=== PATIENT | male | born 1965 | race Caucasian/White ===

== ENCOUNTER 2025-01-22 02:15 | Inpatient (IN) | payer OTHER ==
[2025-01-22] MEDS ORDERED: Magnesium 2 GM/50 ML BAG (IN WATER) ONE (02:22)
[2025-01-22] MEDS ORDERED: Albuterol 2.5 MG (3 mL) NEB ONE (02:31)
[2025-01-22 02:41] LABS: #Basophils 0.10 10x3/uL (0.0-0.2); #Eosinophils 1.15 10x3/uL (0.0-0.5); #Monocytes 0.89 10x3/uL (0.0-1.1); #Neutrophils 6.04 10x3/uL (1.5-8.4); %Basophils 0.9 % (0.0-2.0); %Eosinophils 9.9 % (0.0-6.0); %Lymphocytes 28.5 % (18.0-47.0); %Monocytes 7.7 % (0.0-10.0); %Neutrophils 52.3 % (40.0-75.0); Hematocrit 45.2 % (38.8-50.0); Hemoglobin 15.2 g/dL (13.5-17.5); Mean Corpuscular Hemoglobin 28.5 pg (27.0-33.0); Mean Corpuscular Volume 84.6 fL (81.2-95.1); Platelet Count 268 10x3/uL (150-450); Red Blood Cell (RBC) Count 5.34 10x6/uL (4.32-5.72); White Blood Cell (WBC) Count 11.56 10x3/uL (3.5-10.5)
[2025-01-22 02:47] LABS: Actual Bicarbonate (HCO3v) 22.1 mEq/L (22-28); Analyzer IN Cardio CS ER; Base Excess -2.6 mEq/L (-2 - +2); Calcium, Ionized (venous) 1.12 mmol/L (1.16-1.32); Chloride (VBG) 105 mmol/L (98-106); Hematocrit-VBG 50 % (42.0-52.0); Hemoglobin (Hb) 17.0 g/dL (13.1-17.2); Potassium (VBG) 4.20 mmol/L (3.70-5.30); Puncture Site Other Site; RapidComm Collect By LabNA; Sodium 142 mmol/L (133-146)
[2025-01-22 02:54] LABS: INR-International Normal Ratio 0.9; PTT 26.8 sec (22.0-33.0); Prothrombin Time 10.4 sec (9.5-12.1)
[2025-01-22 02:59] LABS: ALT (SGPT) 17 U/L (Less than 45); AST (SGOT) 26 U/L (11-34); Albumin 4.2 g/dL (3.1-4.5); Alkaline Phosphatase 63 U/L (40-110); Anion Gap 17 mmol/L (10-20); BUN (Urea Nitrogen) 12 mg/dL (8.4-25.7); Bilirubin, Total 0.4 mg/dL (0.3-1.2); Calc. Creatinine Clearance 0 mL/min (70-130); Calcium 8.9 mg/dL (7.8-10.44); Carbon Dioxide 19 mmol/L (22-29); Chloride 108 mmol/L (98-107); Globulin 3.3 g/dL (2.4-3.5); Glucose 119 mg/dL (70-105); Lipase 16 U/L (8-78); Magnesium 2.2 mg/dL (1.6-2.6); Potassium 4.5 mmol/L (3.5-5.1); Sodium 139 mmol/L (136-145)
[2025-01-22 03:05] LABS: Troponin I Less than 0.010 ng/mL (< 0.028)
[2025-01-22] MEDS ORDERED: Ondansetron PF 4 MG/2 ML Vial IVP PRN (04:47)
[2025-01-22] MEDS ORDERED: Calcium Carbonate 500 MG ChewTAB PO PRN (04:47)
[2025-01-22] MEDS ORDERED: Senokot S 8.6-50 MG TAB PO PRN (04:47)
[2025-01-22] MEDS ORDERED: Guaifenesin DM 100-10/5 ML UDCUP PO PRN (04:47)
[2025-01-22] MEDS ORDERED: Acetaminophen 325 MG TAB PO PRN (04:47)
[2025-01-22 05:42] VITALS: BMI 29.6
[2025-01-22] MEDS: Mometasone 200 MCG/Formoterol 5 MCG 60 PUFF INHALER INH SCH (07:27)
[2025-01-22] MEDS: FLU (Fluarix Triv) 25-26 (6MOS UP)/PF 45 MCG/0.5 ML Syringe IM ONE (08:30)
[2025-01-22] MEDS: Enoxaparin 40 MG (0.4 mL) SYRINGE SC SCH (08:31)
[2025-01-22] MEDS: DULoxetine 30 MG CAP PO SCH (08:31)
[2025-01-22] MEDS: Famotidine 20 MG TAB PO SCH (08:31)
[2025-01-22] MEDS: Cefdinir 300 MG CAP PO SCH (08:31)
[2025-01-22] MEDS: Carvedilol 3.125 MG TAB PO SCH (08:31)
[2025-01-22] MEDS: Mupirocin 1 GM TUBE TP SCH (08:31)
[2025-01-22] MEDS ORDERED: Iopamidol 370 76% 100 ML VIAL ONE (08:49)
[2025-01-22] MEDS: PNEUMOC 20-VAL CONJ-DIP CRM/PF 0.5 ML SYRINGE IM ONE (09:43)
[2025-01-23 03:23] LABS: #Basophils Less than 0.03 10x3/uL (0.0-0.2); #Eosinophils Less than 0.03 10x3/uL (0.0-0.5); #Monocytes 0.51 10x3/uL (0.0-1.1); #Neutrophils 13.64 10x3/uL (1.5-8.4); %Basophils 0.1 % (0.0-2.0); %Eosinophils 0.0 % (0.0-6.0); %Lymphocytes 7.3 % (18.0-47.0); %Monocytes 3.3 % (0.0-10.0); %Neutrophils 88.8 % (40.0-75.0); Hematocrit 42.4 % (38.8-50.0); Hemoglobin 14.4 g/dL (13.5-17.5); Mean Corpuscular Hemoglobin 29.2 pg (27.0-33.0); Mean Corpuscular Volume 86.0 fL (81.2-95.1); Platelet Count 274 10x3/uL (150-450); Red Blood Cell (RBC) Count 4.93 10x6/uL (4.32-5.72); White Blood Cell (WBC) Count 15.36 10x3/uL (3.5-10.5)
[2025-01-23 03:40] LABS: Anion Gap 11 mmol/L (10-20); BUN (Urea Nitrogen) 17 mg/dL (8.4-25.7); Calc. Creatinine Clearance 135 mL/min (70-130); Calcium 9.5 mg/dL (7.8-10.44); Carbon Dioxide 27 mmol/L (22-29); Chloride 105 mmol/L (98-107); Glucose 156 mg/dL (70-105); Potassium 4.9 mmol/L (3.5-5.1); Sodium 138 mmol/L (136-145)
[2025-01-24 04:41] LABS: #Basophils Less than 0.03 10x3/uL (0.0-0.2); #Eosinophils Less than 0.03 10x3/uL (0.0-0.5); #Monocytes 0.58 10x3/uL (0.0-1.1); #Neutrophils 15.14 10x3/uL (1.5-8.4); %Basophils 0.1 % (0.0-2.0); %Eosinophils 0.0 % (0.0-6.0); %Lymphocytes 6.7 % (18.0-47.0); %Monocytes 3.4 % (0.0-10.0); %Neutrophils 89.3 % (40.0-75.0); Hematocrit 43.4 % (38.8-50.0); Hemoglobin 14.5 g/dL (13.5-17.5); Mean Corpuscular Hemoglobin 28.7 pg (27.0-33.0); Mean Corpuscular Volume 85.8 fL (81.2-95.1); Platelet Count 277 10x3/uL (150-450); Red Blood Cell (RBC) Count 5.06 10x6/uL (4.32-5.72); White Blood Cell (WBC) Count 16.95 10x3/uL (3.5-10.5)
[2025-01-25 04:01] LABS: #Basophils Less than 0.03 10x3/uL (0.0-0.2); #Eosinophils Less than 0.03 10x3/uL (0.0-0.5); #Monocytes 0.60 10x3/uL (0.0-1.1); #Neutrophils 11.82 10x3/uL (1.5-8.4); %Basophils 0.1 % (0.0-2.0); %Eosinophils 0.0 % (0.0-6.0); %Lymphocytes 8.7 % (18.0-47.0); %Monocytes 4.3 % (0.0-10.0); %Neutrophils 85.3 % (40.0-75.0); Hematocrit 46.7 % (38.8-50.0); Hemoglobin 15.5 g/dL (13.5-17.5); Mean Corpuscular Hemoglobin 28.6 pg (27.0-33.0); Mean Corpuscular Volume 86.2 fL (81.2-95.1); Platelet Count 262 10x3/uL (150-450); Red Blood Cell (RBC) Count 5.42 10x6/uL (4.32-5.72); White Blood Cell (WBC) Count 13.86 10x3/uL (3.5-10.5)
[2025-01-26 03:40] LABS: #Basophils 0.05 10x3/uL (0.0-0.2); #Eosinophils Less than 0.03 10x3/uL (0.0-0.5); #Monocytes 0.76 10x3/uL (0.0-1.1); #Neutrophils 8.28 10x3/uL (1.5-8.4); %Basophils 0.5 % (0.0-2.0); %Eosinophils 0.0 % (0.0-6.0); %Lymphocytes 12.5 % (18.0-47.0); %Monocytes 7.1 % (0.0-10.0); %Neutrophils 76.7 % (40.0-75.0); Hematocrit 46.4 % (38.8-50.0); Hemoglobin 15.8 g/dL (13.5-17.5); Mean Corpuscular Hemoglobin 29.0 pg (27.0-33.0); Mean Corpuscular Volume 85.1 fL (81.2-95.1); Platelet Count 270 10x3/uL (150-450); Red Blood Cell (RBC) Count 5.45 10x6/uL (4.32-5.72); White Blood Cell (WBC) Count 10.78 10x3/uL (3.5-10.5)
[2025-01-26 18:23] VITALS: BP 143/90; TEMP 97.9
== END 2025-01-26 17:55 | DRG 189 ==
LOC: EEVIPCON 02:15 → CSHERS 02:15 → CSHICU 04:57 → CSHTELE 01-23 12:22
PROVIDERS: ADMIT Student in an Organized Health Care Education/Training Program; ATTEND Family Medicine
PROC: 3E03329 Introduction of Other Anti-infective into Peripheral Vein, Percutaneous Approach (ICD-10-PCS; principal; 2025-01-22)
PROC: 3E02340 Introduction of Influenza Vaccine into Muscle, Percutaneous Approach (ICD-10-PCS; 2025-01-22)
PROC: 5A09357 Assistance with Respiratory Ventilation, Less than 24 Consecutive Hours, Continuous Positive Airway Pressure (ICD-10-PCS; 2025-01-22)
DX: J96.01 Acute respiratory failure with hypoxia (principal); J44.1 Chronic obstructive pulmonary disease with (acute) exacerbation; E87.20 Acidosis, unspecified; J44.0 Chronic obstructive pulmonary disease with (acute) lower respiratory infection; J20.8 Acute bronchitis due to other specified organisms; Z99.81 Dependence on supplemental oxygen; I10 Essential (primary) hypertension; E78.5 Hyperlipidemia, unspecified; Z91.81 History of falling; K44.9 Diaphragmatic hernia without obstruction or gangrene; Z87.891 Personal history of nicotine dependence; Z87.828 Personal history of other (healed) physical injury and trauma; Z23 Encounter for immunization
CPT/HCPCS: 36415; 71045; 71275; 80048; 80053; 82805; 83605; 83690; 83735; 83880; 84484; 85025; 85610; 85730; 87040; 87428; 93005; 94640; 94660; 94664; 94760; 94762; 96374; 96375; 97139; J1650; J2543; J2919; J3475; J7120; J7611; Q9967